=== PATIENT | male | born 1960 | race Asian ===

== ENCOUNTER 2025-04-18 09:04 | Inpatient (IN) | payer MEDICARE, MEDICAID ==
[~2025-04-18] VITALS: Ht 182.9 cm; Wt 72.0 kg
--- NOTE | 2025-04-18 09:37 | ED.PDOC ---
History of Present Illness HPI Comments 65 year old male presents to the ED with a chief complaint of dizziness onset 1 day. Patient states he has been experiencing dizziness, nausea for the past day. He noticed symptoms worsened this morning, came to ED. Patient also states he drinks ETOH daily. Denies fever, chills, chest pain, headache, shortness of breath, cough, cold, congestion, dysuria, hematuria. No other symptoms or modifying factors present at this time. Chief Complaint: Dizziness Time Seen by MD: 09:30 Reviewed Notes: Medications, Allergies Allergies: Coded Allergies: NO KNOWN ALLERGIES (Unverified , 04/18/25) Information Source: Patient, Relative (Sibling) Mode of Arrival: Ambulatory Severity: Moderate Timing: Days Duration: Since onset Prehospital treatment: None Past Medical History PAST MEDICAL HISTORY: Denies Surgical History: Denies all surgeries Family History Family History: Reviewed,noncontributory to illness, No family hx of Cancer, No family hx of DM, No family hx of Heart kendrick, No family hx of HTN, No family hx ofKidney kendrick, No family hx of Liver kendrick, No family hx of Lung kendrick, No family hx of Stroke Social History Smoker: Non-Smoker Alcohol: Heavy Drugs: Denies Drug Use Lives In: Home Constitutional: denies: chills, diaphoresis, fatigue, fever, malaise, sweats, weakness, others EENTM: denies: blurred vision, double vision, ear bleeding, ear discharge, ear drainage, ear pain, ear ringing, eye pain, eye redness, hearing loss, mouth pain, mouth swelling, nasal discharge, nose bleeding, nose congestion, nose pain, photophobia, tearing, throat pain, throat swelling, voice changes, others Respiratory: denies: cough, hemoptysis, orthopnea, SOB at rest, shortness of breath, SOB with excertion, stridor, wheezing, others Cardiovascular: denies: chest pain, dizzy spells, diaphoresis, Dyspnea on exertion, edema, irregular heart beat, left arm pain, lightheadedness, palpitations, PND, syncope, others Gastrointestinal: reports: nausea; denies: abdomen distended, abdominal pain, blood streaked bowels, constipated, diarrhea, dysphagia, difficulty swallowing, hematemesis, melena, poor appetite, poor fluid intake, rectal bleeding, rectal pain, vomiting, others Genitourinary: denies: burning, dysuria, flank pain, frequency, hematuria, incontinence, penile discharge, penile sore, pain, testicle pain, testicle swelling, urgency, others Neurological: reports: dizziness; denies: fainting, headache, left sided numbness, left sided weakness, numbness, paresthesia, pre-existing deficit, right sided numbness, right sided weakness, seizure, speech problems, tingling, tremors, weakness, others Musculoskeletal: denies: back pain, gout, joint pain, joint swelling, muscle pain, muscle stiffness, neck pain, others Integumetry: denies: bruises, change in color, change in hair/nails, dryness, laceration, lesions, lumps, rash, wounds, others Allergic/Immunocompromised: denies: Difficulty Healing, Frequent Infections, Hives, Itching, others Hematologic/Lymphatic: denies: anemia, blood clots, easy bleeding, easy bruising, swollen glands, others Endocrine: denies: excessive hunger, excessive sweating, excessive thirst, excessive urination, flushing, intolerance to cold, intolerance to heat, unexplained weight gain, unexplained weight loss, others Psychiatric: denies: anxiety, bipolar disorder, depression, hopeless, panic disorder, schizophrenia, sleepless, suicidal, others All Other Systems: Reviewed and Negative Physical Exam General Appearance: Moderate Distress, Normal HEENT: Normal ENT Inspection, Pharynx Normal, TMs Normal Neck: Full Range of Motion, Non-Tender, Normal, Normal Inspection Respiratory: Chest Non-Tender, Lungs Clear, No Accessory Muscle Use, No Respiratory Distress, Normal Breath Sounds Cardiovascular: No Edema, No JVD, No Murmur, No Gallop, Normal Peripheral Pulses, Regular Rate/Rhythm Breast Exam: Deferred Gastrointestinal: No Organomegaly, Non Tender, No Pulsatile Mass, Normal Bowel Sounds, Soft Genitalia: Deferred Pelvic: Deferred Rectal: Deferred Extremities: No calf tenderness, Normal capillary refill, Normal inspection, Normal range of motion, Non-tender, No pedal edema Musculoskeletal : Apperance: Normal Neurologic: Alert, bowling teacher II-XII nml as Tested, No Motor Deficits, Normal Affect, Normal Mood, No Sensory Deficits Cerebellar Function: Normal Reflexes: Normal Skin: Dry, Normal Color, Warm Peripheral Pulses: 3+ Radial (R), 3+ Radial (L) Lymphatic: No Adenopathy Was a procedure done? Was a procedure done?: No Differential Dx Considerations may include: TIA Electrolyte imbalance X-Ray, Labs, Meds, VS Vital Signs Date Time Temp Pulse Resp B/P (MAP) Pulse Ox O2 Delivery O2 Flow Rate FiO2 04/18/25 09:08 97.8 74 18 133/65 96 97.8 Lab Test 04/18/25 09:43 Range/Units White Blood Count 9.7 4.4-10.8 10^3/uL Red Blood Count 4.70 4.5-5.90 10^6/uL Hemoglobin 15.7 13.5-17.5 g/dL Hematocrit 46.3 41.0-53.0 % Mean Corpuscular Volume 98.5 80.0-100.0 fL Mean Corpuscular Hemoglobin 33.3 H 28.0-32.0 pg Mean Corpuscular Hemoglobin Concent 33.8 32.0-36.0 g/dL Red Cell Distribution Width 14.5 H 11.8-14.3 % Platelet Count 321 140-450 10^3/uL Mean Platelet Volume 7.2 6.9-10.8 fL Neutrophils (%) (Auto) 65.3 37.0-80.0 % Lymphocytes (%) (Auto) 27.0 10.0-50.0 % Monocytes (%) (Auto) 6.8 0.0-12.0 % Eosinophils (%) (Auto) 0.3 0.0-7.0 % Basophils (%) (Auto) 0.6 0.0-2.0 % Neutrophils # (Auto) 6.4 1.6-8.6 10 ^3/uL Lymphocytes # (Auto) 2.6 0.4-5.4 10 ^3/uL Monocytes # (Auto) 0.7 0-1.3 10 ^3/uL Eosinophils # (Auto) 0 0-0.8 10 ^3/uL Basophils # (Auto) 0.1 0-0.2 10 ^3/uL Nucleated Red Blood Cells 0.1 % Sodium Level 139 136-145 mmol/L Potassium Level 4.0 3.5-5.1 mmol/L Chloride Level 104 98-107 mmol/L Carbon Dioxide Level 26 20-31 mmol/L Anion Gap 9 5-15 Blood Urea Nitrogen 11 9-23 mg/dL Creatinine 1.03 0.700-1.30 mg/dL Glomerular Filtration Rate Calc 80 >90 mL/min BUN/Creatinine Ratio 10.7 10.0-20.0 Serum Glucose 144 H 74-106 mg/dL Calcium Level 9.4 8.7-10.4 mg/dL Troponin I High Sensitivity < 3 L </=54 ng/L Current Medications Medications (Trade) Dose Ordered Sig/Angle Route Start Time Stop Time Status Last Admin Sodium Chloride 1,000 ml @ 1,000 mls/hr Q1H ONCE IV 04/18/25 09:45 04/18/25 10:44 DC 04/18/25 10:00 [place] [id number] Ph: [phone] DIAGNOSTIC IMAGING Diagnostic Imaging Report : [id number] Signed PATIENT: BIRDIE AGUIRRE ACCT: [id number] UNIT: [id number] : 1960 LOC: ER ROOM / BED: / AGE / SEX: 65 / M ADM STATUS: REG ER SERVICE 1021 ORDERING PHYSICIAN: REINALDO MATHIS MD PROCEDURE(s): HWOCT - HEAD WITHOUT CONTRAST REASON: tia ORDER NUMBER(s): [id number], ACCESSION NUMBER(s): [id number] EXAM: CT HEAD WITHOUT CONTRAST INDICATION: tia TECHNIQUE: CT of the head without intravenous contrast. Radiation Dose Information: CT Dose: CTDI volume is 53.99 mGy. Dose-length product is 971.88 mGy*cm The dose indicators for CT are the volume Computed Tomography (CT) Dose Index (CTDIvol) and the Dose Length Product (DLP), and are measured in units of mGy and mGy-cm, respectively. These indicators are not patient dose, but values generated from the CT scanner acquisition factors. The report includes radiation exposure data for exposures received during this examination. COMPARISON: None FINDINGS: There is no evidence of acute intracranial hemorrhage, extra-axial collection, mass effect, midline shift, herniation or hydrocephalus. The ventricles, sulci and cisterns are age appropriate. The kidd-white differentiation is intact. Patchy periventricular and subcortical white matter hypoattenuation is nonspecific but may be related to small vessel ischemic disease. The visualized paranasal sinuses and mastoid air cells are clear. The surrounding soft tissues and osseous structures are unremarkable. IMPRESSION: No acute intracranial abnormality. ATED BY: PRAVEENA HAWKINS MD DICTATED DATE/TIME: 04/18/251103 SIGNED BY: PRAVEENA HAWKINS MD SIGNED DATE/TIME: 04/18/251103 CC: Patient alert. Came in because of dizziness. Vitals stable. Answering all questions. He needs help walking. CT scan of the head reviewed does not show any acute changes. He does smoke cigarettes. Counseled patient on effects of smoking for 15 minutes. Does drink daily. Counseled patient on effects of drinking for 15 minutes. Explained to the patient. Continue monitoring. Time of 1ST Reevaluation: 10:00 Reevaluation 1ST: Unchanged Patient Education/Counseling: Diagnosis, Treatment, Prognosis Family Education/Counseling: Diagnosis, Treatment, Prognosis SEPSIS Sepsis Screen Date sepsis recognized/suspect: Apr 18, 2025 Time Sepsis recognized/suspect: 09 Recent Procedure: No On Antibiotic Therapy: No Respiratory Rate >20: No Heart Rate >90: No Temp<36 C (96.8 F) or >38.3 C: No SBP <90 or MAP <65 mmHG: No New Acute Mental Status Change: No Is the patient on CPAP, BIPAP,: No Physician Orders Head Without Contrast (04/18/25 10:21) Vital Signs Date Time Temp Pulse Resp B/P (MAP) Pulse Ox O2 Delivery O2 Flow Rate FiO2 04/18/25 09:08 97.8 74 18 133/65 96 97.8 Laboratory Tests Test 04/18/25 09:43 White Blood Count 9.7 10^3/uL (4.4-10.8) Medications Medications Dose Ordered Sig/Angle Route Start Time Stop Time Status Last Admin Dose Admin Sodium Chloride 1,000 ml @ 1,000 mls/hr Q1H ONCE IV 04/18/25 09:45 04/18/25 10:44 DC 04/18/25 10:00 Departure 1 Departure Time of Disposition: 13:13 Impression: Primary Impression: TIA (transient ischemic attack) Additional Impression: Autonomic disorder Disposition: ADMITTED INPATIENT Admit to: Med Surg Condition: Guarded Critical Care Note Critical Care Time?: Yes (90 min-critical care time only) Stability Stability form required: No Heart Score Heart Score: Heart Score Response (Comments) Value History Slightly Suspicious 0 EKG Normal 0 Age >65 2 Risk Factors >3 or Hx ASHD 2 Troponin Normal limit 0 Total 4 I personally scribed for REINALDO MATHIS MD ([email or web address]) on 04/18/25 at 09:37. Electronically submitted by Jessica Mckeon ([email or web address]). I personally scribed for REINALDO MATHIS MD ([email or web address]) on 04/18/25 at 11:19. Electronically submitted by Jessica Mckeon ([email or web address]). REINALDO MATHIS MD Apr 18, 2025 09:37
[2025-04-18 09:56] LABS: Hematocrit 46.3 % (41.0-53.0); Hemoglobin 15.7 g/dL (13.5-17.5); Mean Corpuscular Hemoglobin 33.3 pg (28.0-32.0); Mean Corpuscular Volume 98.5 fL (80.0-100.0); Nucleated Red Blood Cells % 0.1 %
[2025-04-18 09:58] LABS: Chloride 104 mmol/L (98-107); Potassium 4.0 mmol/L (3.5-5.1); Sodium 139 mmol/L (136-145)
[2025-04-18 09:59] LABS: Anion Gap 9 (5-15); Carbon Dioxide 26 mmol/L (20-31)
[2025-04-18 10:00] LABS: Calcium 9.4 mg/dL (8.7-10.4)
[2025-04-18] MEDS: SODIUM CHLORIDE 0.9% 1,000 ML IV ONE ×2 (10:00→18:00)
[2025-04-18 10:05] LABS: BUN/Creatinine Ratio 10.7 (10.0-20.0); Blood Urea Nitrogen 11 mg/dL (9-23)
[2025-04-18 10:09] LABS: Glucose 144 mg/dL (74-106)
--- NOTE | 2025-04-18 11:07 | DVH ---
EXAM: CT HEAD WITHOUT CONTRAST INDICATION: tia TECHNIQUE: CT of the head without intravenous contrast. Radiation Dose Information: CT Dose: CTDI volume is 53.99 mGy. Dose-length product is 971.88 mGy*cm The dose indicators for CT are the volume Computed Tomography (CT) Dose Index (CTDIvol) and the Dose Length Product (DLP), and are measured in units of mGy and mGy-cm, respectively. These indicators are not patient dose, but values generated from the CT scanner acquisition factors. The report includes radiation exposure data for exposures received during this examination. COMPARISON: None FINDINGS: There is no evidence of acute intracranial hemorrhage, extra-axial collection, mass effect, midline s hift, herniation or hydrocephalus. The ventricles, sulci and cisterns are age appropriate. The kidd-white differentiation is intact. Patchy periventricular and subcortical white matter hypoattenuation is nonspecific but may be related to small vessel ischemic disease. The visualized paranasal sinuses and mastoid air cells are clear. The surrounding soft tissues and osseous structures are unremarkable. IMPRESSION: No acute intracranial abnormality.
[2025-04-18] MEDS ORDERED: ACETAMINOPHEN 325 MG TAB PO PRN (15:30)
[2025-04-18] MEDS ORDERED: ONDANSETRON HCL 4 MG/2 ML VIAL IV PRN (15:30)
[2025-04-18] MEDS ORDERED: MORPHINE SULFATE INJ 2 MG/ml SYRG IV PRN (15:30)
[2025-04-18] MEDS ORDERED: HYDROcodone-ACET 5/325MG TAB PO PRN (15:30)
[2025-04-18] MEDS ORDERED: NITROGLYCERIN 0.4 MG SL TAB SL PRN (15:30)
[2025-04-18] MEDS ORDERED: DOCUSATE SOD 100 MG CAP PO PRN (15:30)
[2025-04-18] MEDS ORDERED: MECLIZINE HCL 25 MG TAB PO PRN (15:45)
--- NOTE | 2025-04-18 16:07 | DVH ---
Carotid Duplex Date: 04/18/2025 03:39 PM Clinical History: Possible TIA Comparison: None Technique: Duplex Doppler evaluation of the extracranial carotid and vertebral arteries including col or Doppler and spectral/pulsed waveform analysis was performed. Findings: RIGHT SIDE: The peak systolic velocities are 130 cm/s in the distal CCA and 73 cm/s in the proximal ICA.The ICA/C CA ratio is less than 1. The external carotid artery is patent with peak systolic velocity of 77 cm/s proximally. There is appropriate antegrade flow in the right vertebral artery. LEFT SIDE: The peak systolic velocities are 132 cm/s in the distal CCA and 77 cm/s in the proximal ICA.. The ICA /CCA ratio is less than 1. The external carotid artery is patent with peak systolic velocity of 128 cm/s proximally. There is appropriate antegrade flow in the left vertebral artery. IMPRESSION: 1. No hemodynamically significant stenosis noted in the right carotid system. Elevated velocity of th e right common carotid proximally 2. No hemodynamically significant stenosis noted in the left carotid system. Elevated velocity left e xternal carotid 3. Reference: Radiology 2003; 229:340-346
--- NOTE | 2025-04-18 16:21 | DVHHP2 ---
History of Present Illness Reason for Visit: Dizzy History of Present Illness Lio Quiñonez is a 65-year-old male with no significant past medical history, who came to the hospital for dizziness. Patient states it started yesterday and has continued this morning. States it is worse when he moves his head or moves quickly with associated nausea. Patient states he smokes about 1 pack of cigarettes in 3 days and drinks 1 bottle of whiskey in 3 days. Smoke: <1 pack per day ALCOHOL: heavy (whiskey) Drugs: Marijuana Lives: Alone Domestic Violence: Neg Review of Systems Constitutional: No: Fever, Chills, Sweats, Weakness, Malaise, Other Eyes: No: Pain, Vision change, Conjunctivae inflammation, Eyelid inflammation, Other, Redness ENT: No: Ear pain, Ear discharge, Nose pain, Nose discharge, Nose congestion, Mouth pain, Mouth swelling, Throat pain, Throat swelling, Other Respiratory: No: Cough, Dry, Shortness of breath, SOB with excertion, Wheezing, Hemoptysis, Pleuritic Pain, Sputum, Wheezing, Other Cardiovascular: No: Chest Pain, Palpitations, Orthopnea, Paroxysmal Noc. Dyspnea, Edema, Lt Headedness, Other Gastrointestinal: Nausea; No: Vomiting, Abdominal Pain, Diarrhea, Constipation, Melena, Hematochezia, Other Genitourinary: No Dysuria, No Frequency, No Incontinence, No Hematuria, No Retention, No Other Musculoskeletal: No: other, neck pain, shoulder pain, arm pain, back pain, hand pain, leg pain, foot pain Skin: No: Rash, Lesions, Jaundice, Bruising, Other Neurological: Other (dizzy); No: Weakness, Numbness, Incoordination, Change in speech, Confusion, Seizures Allergies: Coded Allergies: NO KNOWN ALLERGIES (Unverified , 04/18/25) Medications Current Medications Medications Dose Ordered Sig/Angle Route Start Time Stop Time Status Last Admin Dose Admin Sodium Chloride 10 ml Q8HR IV 04/18/25 22:00 UNV Acetaminophen/ Hydrocodone Bitart 1 tab Q4HP PRN PO 04/18/25 15:30 UNV Ondansetron HCl 4 mg Q4HP PRN IV 04/18/25 15:30 UNV Docusate Sodium 100 mg BIDPRN PRN PO 04/18/25 15:30 UNV Acetaminophen 650 mg Q6HP PRN PO 04/18/25 15:30 UNV Nitroglycerin 0.4 mg Q5MINP PRN SL 04/18/25 15:30 UNV Morphine Sulfate 2 mg Q30M PRN IV 04/18/25 15:30 UNV Exam Vital Signs Vital Signs Date Time Temp Pulse Resp B/P (MAP) Pulse Ox O2 Delivery O2 Flow Rate FiO2 04/18/25 09:08 97.8 74 18 133/65 96 97.8 General Appearance: Alert, Oriented X3, Cooperative, No acute distress HEENT: Atraumatic, PERRLA Respiratory: Clear to auscultation, Normal air movement Cardiovascular: Regular rate, Normal S1, Normal S2, No murmurs Abdominal: Normal bowel sounds, Soft, No tenderness, No hepatospenomegaly Extremities: No clubbing, No cyanosis, No edema, Normal pulses, No tende rness/swelling Skin: No rashes, No breakdown, No significant lesion Neuro: Normal gait, Normal speech, Strength at 5/5 X4 ext Psych/Mental Status: Mental status NL, Mood NL Labs/Xrays Labs Test 04/18/25 09:43 Range/Units White Blood Count 9.7 4.4-10.8 10^3/uL Red Blood Count 4.70 4.5-5.90 10^6/uL Hemoglobin 15.7 13.5-17.5 g/dL Hematocrit 46.3 41.0-53.0 % Mean Corpuscular Volume 98.5 80.0-100.0 fL Mean Corpuscular Hemoglobin 33.3 H 28.0-32.0 pg Mean Corpuscular Hemoglobin Concent 33.8 32.0-36.0 g/dL Red Cell Distribution Width 14.5 H 11.8-14.3 % Platelet Count 321 140-450 10^3/uL Mean Platelet Volume 7.2 6.9-10.8 fL Neutrophils (%) (Auto) 65.3 37.0-80.0 % Lymphocytes (%) (Auto) 27.0 10.0-50.0 % Monocytes (%) (Auto) 6.8 0.0-12.0 % Eosinophils (%) (Auto) 0.3 0.0-7.0 % Basophils (%) (Auto) 0.6 0.0-2.0 % Neutrophils # (Auto) 6.4 1.6-8.6 10 ^3/uL Lymphocytes # (Auto) 2.6 0.4-5.4 10 ^3/uL Monocytes # (Auto) 0.7 0-1.3 10 ^3/uL Eosinophils # (Auto) 0 0-0.8 10 ^3/uL Basophils # (Auto) 0.1 0-0.2 10 ^3/uL Nucleated Red Blood Cells 0.1 % Sodium Level 139 136-145 mmol/L Potassium Level 4.0 3.5-5.1 mmol/L Chloride Level 104 98-107 mmol/L Carbon Dioxide Level 26 20-31 mmol/L Anion Gap 9 5-15 Blood Urea Nitrogen 11 9-23 mg/dL Creatinine 1.03 0.700-1.30 mg/dL Glomerular Filtration Rate Calc 80 >90 mL/min BUN/Creatinine Ratio 10.7 10.0-20.0 Serum Glucose 144 H 74-106 mg/dL Calcium Level 9.4 8.7-10.4 mg/dL Troponin I High Sensitivity < 3 L </=54 ng/L EXAM: CT HEAD WITHOUT CONTRAST FINDINGS: There is no evidence of acute intracranial hemorrhage, extra-axial collection, mass effect, midline shift, herniation or hydrocephalus. The ventricles, sulci and cisterns are age appropriate. The kidd-white differentiation is intact. Patchy periventricular and subcortical white matter hypoattenuation is nonspecific but may be related to small vessel ischemic disease. The visualized paranasal sinuses and mastoid air cells are clear. The surrounding soft tissues and osseous structures are unremarkable. IMPRESSION: No acute intracranial abnormality. SEPSIS Sepsis Screen Date sepsis recognized/suspect: Apr 18, 2025 Time Sepsis recognized/suspect: 910 Recent Procedure: No On Antibiotic Therapy: No Respiratory Rate >20: No Heart Rate >90: No Temp<36 C (96.8 F) or >38.3 C: No SBP <90 or MAP <65 mmHG: No New Acute Mental Status Change: No Is the patient on CPAP, BIPAP,: No Physician Orders Head Without Contrast (04/18/25 10:21) Admit (04/18/25 15:20) Code Status (04/18/25 15:20) Sodium Chloride Lock (Saline Lock Ns) (04/18/25 22:00) Hydrocodone-Acet 5/325mg Tab ([place] 5/32 (04/18/25 15:30) Ondansetron Hcl (Zofran) (04/18/25 15:30) Docusate Sodium Capsule (Colace Capsule) (04/18/25 15:30) Complete Blood Count (04/19/25 04:00) Comprehensive Metabolic Panel (04/19/25 04:00) Carotid Duplx W Color Dop (04/18/25 15:20) Condition: Serious (04/18/25 15:20) Acetaminophen Tablet (Tylenol Tablet) (04/18/25 15:30) Nitroglycerin Sublingual (Ntrostat Subli (04/18/25 15:30) Morphine Sulfate Injection (04/18/25 15:30) Stat Ekg For Chest Pain (04/18/25 15:20) Notify Of Changes From Base (04/18/25 15:20) Search Specialist For 24 Hours (04/18/25 15:20) Emergency Dysrhythmia Protocol (04/18/25 15:20) Rhythm Strips Once Every Shift (04/18/25 15:20) Oxygen By Nasal Cannula (04/18/25 15:20) Vital Signs Date Time Temp Pulse Resp B/P (MAP) Pulse Ox O2 Delivery O2 Flow Rate FiO2 04/18/25 09:08 97.8 74 18 133/65 96 97.8 Laboratory Tests Test 04/18/25 09:43 White Blood Count 9.7 10^3/uL (4.4-10.8) Medications Medications Dose Ordered Sig/Angle Route Start Time Stop Time Status Last Admin Dose Admin Sodium Chloride 1,000 ml @ 1,000 mls/hr Q1H ONCE IV 04/18/25 09:45 04/18/25 10:44 DC 04/18/25 10:00 1,000 MLS/HR Assessment/Plan Assessment/Plan Assessment: Autonomic disorder, Possible vertigo, ETOH dependance, Plan: Admit to Tele, Neurology consult, Meclizine, PO supplements for possible ETOH withdrawal, PRN Ativan for possible ETOH withdrawal, IV hydration, Plan discussed with: Patient, Other (Sister) My Orders Orders - AUTUMN GONZALES Procedure Category Date Status Time Admit ADMIT 04/18/25 Transmitted 15:20 Code Status CODE 04/18/25 Transmitted 15:20 Sodium Chloride Lock PHA 04/18/25 Logged (Saline Lock Ns) 22:00 Hydrocodone-Acet PHA 04/18/25 Logged 5/325mg Tab ([place] 15:30 Ondansetron Hcl PHA 04/18/25 Logged (Zofran) 15:30 Docusate Sodium PHA 04/18/25 Logged Capsule (Colace 15:30 Complete Blood Count LAB 04/19/25 Verified 04:00 Comprehensive LAB 04/19/25 Verified Metabolic Panel 04:00 Carotid Duplx W Color US 04/18/25 Logged DOP 15:20 Condition: Serious [facility] 04/18/25 In Process 15:20 Acetaminophen Tablet PHA 04/18/25 Logged (Tylenol Tablet) 15:30 Nitroglycerin PHA 04/18/25 Logged Sublingual (Ntrostat 15:30 Morphine Sulfate PHA 04/18/25 Logged Injection 15:30 Stat Ekg For Chest [facility] 04/18/25 In Process Pain 15:20 Notify Md Of Changes [facility] 04/18/25 In Process From Base 15:20 Search Specialist For [facility] 04/18/25 In Process 24 Hours 15:20 Emergency Dysrhythmia [facility] 04/18/25 In Process Protocol 15:20 Rhythm Strips Once [facility] 04/18/25 In Process Every Shift 15:20 Oxygen By Nasal RT 04/18/25 Transmitted Cannula 15:20 Date of Service: Apr 18, 2025 Billing Provider: AUTUMN GONZALES Common Visit Codes: [id number] INP/OBS CARE (MOD) AUTUMN GONZALES Apr 18, 2025 16:21
[2025-04-18] MEDS ORDERED: LORazepam 2MG/ML-1ML VIAL IV PRN (16:30)
[2025-04-18] MEDS: FOLIC ACID 1 MG TAB PO ONE (17:07)
[2025-04-18] MEDS: THIAMINE HCL 100 MG TAB PO ONE (17:07)
[2025-04-18] MEDS: MECLIZINE HCL 25 MG TAB PO ONE (17:07)
[2025-04-18] MEDS: MULTIPLE VITAMINS W/ MINERALS TAB PO ONE (17:07)
[2025-04-18 18:25] VITALS: BP 126/75; PULSE 64; RESP 14; TEMP 98; O2SAT 97
--- NOTE | 2025-04-18 20:38 | DVHINCON2 ---
Date of service: Apr 18, 2025 Referring Physician Carmen Reason for Consultation Autonomic disorder, possible vertigo History of Present Illness Mr. Quiñonez is a 65 years ambidextrous gentleman with a history of gout, he came to the [facility] on 04/18/2025 with a chief complaint of dizziness. At this time, he is alert and fully oriented, he provided the following history On 04/17/25, I have suddenly up, when he walks down stairs, he had a brief dizziness/imbalance feeling but he did not have vertigo, chest pain, headache, vision changes, he kept himself still and the symptoms resolved with 1 minutes high, later when he moved his head, he had a discomfort, his problems persist and he decided to come to the hospital today. At this time, he moves head, he still have light discomfort. He has never had similar problem before He drinks alcohol heavily, maybe every other day, with the last drink on WBC/HB/PLT/MCV, 04/18/2025: 9.7/47/321/98.5 BMP 04/18/2025: Unremarkable Troponin one high sensitivity, 04/18/2025: <3 Carotid Doppler, 04/18/2025: 1. No hemodynamically significant stenosis noted in the right carotid system. Elevated velocity of the right common carotid proximally 2. No hemodynamically significant stenosis noted in the left carotid system. Elevated velocity left external carotid CT head, 04/18/2025: No acute intracranial abnormality Past Medical History Gout Past Surgical History Right knee surgery Family History Heart attack, stroke Social History He smokes tobacco, he drinks heavy alcohol almost every other day, he smokes marijuana, but no history of street drug abuse Allergies: Coded Allergies: NO KNOWN ALLERGIES (Unverified , 04/18/25) Current Medications Current Medications Medications (Trade) Dose Ordered Sig/Angle Route PRN Reason Start Time Stop Time Status Last Admin Sodium Chloride (Saline Lock Ns) 10 ml Q8HR IV 04/18/25 22:00 Acetaminophen/ Hydrocodone Bitart ([place] 5/325MG Tab) 1 tab Q4HP PRN PO MODERATE PAIN (4-6 PAIN SCALE) 04/18/25 15:30 Ondansetron HCl (Zofran) 4 mg Q4HP PRN IV NAUSEA / VOMITING 04/18/25 15:30 Docusate Sodium (Colace Capsule) 100 mg BIDPRN PRN PO FOR CONSTIPATION 04/18/25 15:30 Acetaminophen (Tylenol Tablet) 650 mg Q6HP PRN PO PAIN SCALE 1-3 OR TEMP>100.4 04/18/25 15:30 Nitroglycerin (Ntrostat Sublingual) 0.4 mg Q5MINP PRN SL FOR CHEST PAIN 04/18/25 15:30 Morphine Sulfate 2 mg Q30M PRN IV FOR CHEST PAIN 04/18/25 15:30 Meclizine HCl (Antivert Tablet) 25 mg Q8HPRN PRN PO DIZZINESS 04/18/25 15:45 Thiamine HCl 100 mg DAILY PO 04/19/25 10:00 Multivitamins/ Minerals (Mvi W/ Minerals Tablet) 1 tab DAILY PO 04/19/25 10:00 Folic Acid 1 mg DAILY PO 04/19/25 10:00 Lorazepam (Ativan Inj) 1 mg Q2HP PRN IV ALCOHOL WITHDRAWAL SYMPTOMS 04/18/25 16:30 Review of Systems As above, the other systems are negative Vital Signs Vital Signs Date Time Temp Pulse Resp B/P (MAP) Pulse Ox O2 Delivery O2 Flow Rate FiO2 04/18/25 18:25 64 14 97 Room Air* 0 21 04/18/25 18: 98.0 126/75 (92) 98.0 Physical Exam GENERAL EXAM: General: the patient is well developed and nourished. No acute distress. HEENT: Normocephalic, neck is supple, no carotid bruits. No mass. RESPIRATORY: Normal respiratory effort with symmetrical lung expansion. Lungs clear to auscultation. CARDIOVASCULAR: Regular rate and rhythm with no murmurs. S1, S2. ABDOMEN: Soft, nontender, normal bowel sound NEUROLOGICAL: MENTAL STATUS: Awake and alert. Oriented to person, place, time and general circumstances. Able to give personal history. SPEECH, LANGUAGE, HIGHER CORTICAL FUNCTION: no aphasia or dysathria. CRANIAL NERVES: #2: Intact visual diaz to confrontation. The optic discs were sharp #3,4,6: Pupils are equal, round and reactive. EOMs full and conjugate. No nystagmus. #5: Facial sensation intact in all three divisions bilaterally. Mandibular strength intact. #7: Facial muscles symmetrical and strength intact. #8: Hearing grossly normal to voice. #9,10: Uvula and soft palate rise in the midline. Swallow and voice are normal. #11: Trapezius and sternomastoid strength intact bilaterally. #12: Tongue midline. No fasciculations or atrophy. SENSATION: Sensation to touch and pinprick is normal. MOTOR: Normal tone in the upper and lower extremity. Normal muscle bulk. No fasciculations. No abnormal movements or posturing. Muscle strength of the major groups in the upper extremities is 5/5. Muscle strength of the major groups in the lower extremities is 5/5. REFLEXES: Deep tendon reflexes are symmetrical. No pathological reflexes. CEREBELLAR/COORDINATION: Finger to nose and heel to mcleod are normal bilaterally. GAIT/STATION: deferred. Labs/Diagnostic Data Labs Test 04/18/25 09:43 Range/Units White Blood Count 9.7 4.4-10.8 10^3/uL Red Blood Count 4.70 4.5-5.90 10^6/uL Hemoglobin 15.7 13.5-17.5 g/dL Hematocrit 46.3 41.0-53.0 % Mean Corpuscular Volume 98.5 80.0-100.0 fL Mean Corpuscular Hemoglobin 33.3 H 28.0-32.0 pg Mean Corpuscular Hemoglobin Concent 33.8 32.0-36.0 g/dL Red Cell Distribution Width 14.5 H 11.8-14.3 % Platelet Count 321 140-450 10^3/uL Mean Platelet Volume 7.2 6.9-10.8 fL Neutrophils (%) (Auto) 65.3 37.0-80.0 % Lymphocytes (%) (Auto) 27.0 10.0-50.0 % Monocytes (%) (Auto) 6.8 0.0-12.0 % Eosinophils (%) (Auto) 0.3 0.0-7.0 % Basophils (%) (Auto) 0.6 0.0-2.0 % Neutrophils # (Auto) 6.4 1.6-8.6 10 ^3/uL Lymphocytes # (Auto) 2.6 0.4-5.4 10 ^3/uL Monocytes # (Auto) 0.7 0-1.3 10 ^3/uL Eosinophils # (Auto) 0 0-0.8 10 ^3/uL Basophils # (Auto) 0.1 0-0.2 10 ^3/uL Nucleated Red Blood Cells 0.1 % Sodium Level 139 136-145 mmol/L Potassium Level 4.0 3.5-5.1 mmol/L Chloride Level 104 98-107 mmol/L Carbon Dioxide Level 26 20-31 mmol/L Anion Gap 9 5-15 Blood Urea Nitrogen 11 9-23 mg/dL Creatinine 1.03 0.700-1.30 mg/dL Glomerular Filtration Rate Calc 80 >90 mL/min BUN/Creatinine Ratio 10.7 10.0-20.0 Serum Glucose 144 H 74-106 mg/dL Calcium Level 9.4 8.7-10.4 mg/dL Troponin I High Sensitivity < 3 L </=54 ng/L Assessment Dizziness/unsteadiness ? Orthostatic hypotension ? Alcohol toxicity Alcoholism Plan/Recommendation Monitoring Supportive treatment Telemetry Orthostatic vitals MRI head Folic acid supplementation Thiamine supplementation Quit alcohol completely Syncopal precautions discussed More recommendation per clinical course Prognosis: Poor This medical document was created using an electronic medical record system with [employer] dictation system. Although this document has been carefully reviewed, there may still be some phonetic and typographical errors. These areas are purely typographical due to imperfections of the software programs, and do not reflect any compromise in the patient's medical care. Plan discussed with: Patient, Other TAZ ESTRADA MD Apr 18, 2025 20:38
[2025-04-18 20:43] VITALS: BP 160/64; PULSE 61; RESP 17; TEMP 97.7; O2SAT 98
[2025-04-18] MEDS: SODIUM CHLOR 0.9% PF (SALINE LOCK) 10ML VIAL/SYR IV SCH (22:00)
[2025-04-18 22:15] VITALS: BP 150/105; PULSE 64; RESP 18; TEMP 98.6; O2SAT 96
[2025-04-19 01:00] VITALS: BP 128/69; PULSE 75; RESP 19; TEMP 97.3; O2SAT 95
[2025-04-19 05:00] VITALS: BP 132/81; PULSE 61; RESP 18; TEMP 97; O2SAT 95
[2025-04-19 05:54] LABS: Hematocrit 40.7 % (41.0-53.0); Hemoglobin 14.0 g/dL (13.5-17.5); Mean Corpuscular Hemoglobin 34.0 pg (28.0-32.0); Mean Corpuscular Volume 98.5 fL (80.0-100.0); Nucleated Red Blood Cells % 0.0 %
[2025-04-19 06:12] LABS: Alanine Aminotransferase 34 U/L (7-40); Alkaline Phosphatase 47 U/L (46-116); Anion Gap 7 (5-15); BUN/Creatinine Ratio 12.4 (10.0-20.0); Blood Urea Nitrogen 12 mg/dL (9-23); Calcium 8.6 mg/dL (8.7-10.4); Carbon Dioxide 24 mmol/L (20-31); Chloride 110 mmol/L (98-107); Glucose 102 mg/dL (74-106); Potassium 4.2 mmol/L (3.5-5.1); Sodium 141 mmol/L (136-145); Total Protein 6.5 g/dL (5.7-8.2)
[2025-04-19 06:13] LABS: Albumin 4.1 g/dL (3.2-4.8)
[2025-04-19 06:14] LABS: Bilirubin, Total 1.7 mg/dL (0.2-1.0)
[2025-04-19 08:00] VITALS: PULSE 55
[2025-04-19 09:00] VITALS: BP 153/85; PULSE 60; RESP 16; TEMP 97.9; O2SAT 97
--- NOTE | 2025-04-19 09:00 | DVHPN2 ---
Progress Note - Dictate Date Seen: Apr 19, 2025 Medical Necessity Reason Pt with a Central, PICC or Fol: No Subjective Mr. Quiñonez is a 65 years ambidextrous gentleman with a history of gout, he came to the [facility] on 04/18/2025 with a chief complaint of dizziness. At this time, he is alert and fully oriented, he provided the following history On 04/17/25, after standing up, when he was walking down stairs, he had a brief dizziness/imbalance feeling but he did not have vertigo, chest pain, headache, vision changes, he kept himself still and the symptoms resolved within 1 minute, later when he moved his head, he had a discomfort, his problems persisted and he decided to come to the hospital today. At this time, when he moves the head, he still has light discomfort. He has never had similar problem previously He used to drink alcohol heavily, maybe every other day, with the last drink on 04/16/2025 I have seen and examined the patient, talked to his nurse, and other medical staff, he is doing fine, alert and fully oriented, no new complaints WBC/HB/PLT/MCV, 04/18/2025: 9.7/47/321/98.5 BMP 04/18/2025: Unremarkable Troponin one high sensitivity, 04/18/2025: <3 Carotid Doppler, 04/18/2025: 1. No hemodynamically significant stenosis noted in the right carotid system. Elevated velocity of the right common carotid proximally 2. No hemodynamically significant stenosis noted in the left carotid system. Elevated velocity left external carotid CT head, 04/18/2025: No acute intracranial abnormality vital signs Vital Sign Date Time Temp Pulse Resp B/P (MAP) Pulse Ox O2 Delivery O2 Flow Rate FiO2 04/19/25 08:20 Room Air* 0 21 04/19/25 05:00 97.0 61 18 132/81 (98) 95 97.0 Total Intake and Output 04/18/25 04/18/25 04/19/25 15:00 23:00 07:00 Intake Total 400 ml Balance 400 ml medications Current Medications Medications Dose Ordered Sig/Angle Route Start Time Stop Time Status Last Admin Dose Admin Sodium Chloride 10 ml Q8HR IV 04/18/25 22:00 04/19/25 05:26 10 ML Acetaminophen/ Hydrocodone Bitart 1 tab Q4HP PRN PO 04/18/25 15:30 Ondansetron HCl 4 mg Q4HP PRN IV 04/18/25 15:30 Docusate Sodium 100 mg BIDPRN PRN PO 04/18/25 15:30 Acetaminophen 650 mg Q6HP PRN PO 04/18/25 15:30 Nitroglycerin 0.4 mg Q5MINP PRN SL 04/18/25 15:30 Morphine Sulfate 2 mg Q30M PRN IV 04/18/25 15:30 Meclizine HCl 25 mg Q8HPRN PRN PO 04/18/25 15:45 Thiamine HCl 100 mg DAILY PO 04/19/25 10:00 Multivitamins/ Minerals 1 tab DAILY PO 04/19/25 10:00 Folic Acid 1 mg DAILY PO 04/19/25 10:00 Lorazepam 1 mg Q2HP PRN IV 04/18/25 16:30 objective General: the patient is well developed and nourished. No acute distress. MENTAL STATUS: Subjective SPEECH, LANGUAGE, HIGHER CORTICAL FUNCTION: no aphasia or dysathria. CRANIAL NERVES: Pupils are equal, round and reactive. EOMs full and conjugate. No nystagmus. Facial sensation intact in all three divisions bilaterally. Mandibular strength intact. Facial muscles symmetrical and strength intact. Tongue midline. No fasciculations or atrophy. SENSATION: Sensation to touch and pinprick is normal. MOTOR: Normal tone in the upper and lower extremity. Normal muscle bulk. No fasciculations. No abnormal movements or posturing. Muscle strength of the major groups in the extremities is 5/5. REFLEXES: Deep tendon reflexes are symmetrical. No pathological reflexes. CEREBELLAR/COORDINATION: Finger to nose and heel to mcleod are normal bilaterally. GAIT/STATION: deferred laboratory and microbiology Laboratory Tests 04/19/25 04:28 Test 04/19/25 04:28 Range/Units Serum Glucose 102 74-106 mg/dL Problem List Dizziness/unsteadiness ? Orthostatic hypotension ? Alcohol toxicity Alcoholism Assessment/Plan Monitoring Supportive treatment Telemetry Orthostatic vitals MRI head Folic acid supplementation Thiamine supplementation Quit alcohol completely Syncopal precautions discussed More recommendation per clinical course This medical document was created using an electronic medical record system with [employer] dictation system. Although this document has been carefully reviewed, there may still be some phonetic and typographical errors. These areas are purely typographical due to imperfections of the software programs, and do not reflect any compromise in the patient's medical care. Prognosis poor Plan discussed with: Patient, Other TAZ ESTRADA MD Apr 19, 2025 09:00
[2025-04-19] MEDS: FOLIC ACID 1 MG TAB PO SCH (09:35)
[2025-04-19] MEDS: MULTIPLE VITAMINS W/ MINERALS TAB PO SCH (09:35)
[2025-04-19] MEDS: THIAMINE HCL 100 MG TAB PO SCH (09:35)
--- NOTE | 2025-04-19 10:58 | DVH ---
EXAMINATION: MRI BRAIN HEAD WO CONTRAST INDICATION: Dizziness. COMPARISON: CT HEAD WITHOUT CONTRAST on DOS: 04/18/25 TECHNIQUE: Multiplanar, multisequence magnetic resonance imaging of the brain was performed without the use of i ntravenous contrast. FINDINGS: No evidence of acute infarct. No intracranial hemorrhage. No mass effect. There is periventricular/deep white matter T2/FLAIR hyperintensity is nonspecific, but most commonly associated with chronic microvascular disease. The ventricles and sulci are normal in size for age. Clear basal cisterns. Flow voids in the major intracranial vessels are maintained. No abnormality of the orbits. The mastoid air cells are clear. Mucosal thickening in the right maxillary sinus. No abnormality of the visualized osseous structures and extracranial soft tissues. IMPRESSION: 1. No acute infarct, intracranial hemorrhage, mass effect, or hydrocephalus.
[2025-04-19] MEDS ORDERED: THIA100T10 PO (13:08)
[2025-04-19] MEDS ORDERED: FOLI-119 PO (13:08)
[2025-04-19] MEDS ORDERED: MULT-351 PO (13:08)
[2025-04-19] MEDS ORDERED: MECL-90 PO (13:08)
--- NOTE | 2025-04-19 13:11 | DVHDS2 ---
Discharge Summary Date of Admission Apr 18, 2025 at 15:20 Date of Discharge: Apr 19, 2025 Labs/Diagnostic Data: Laboratory Results Test 04/19/25 04:28 04/18/25 09:43 White Blood Count 8.5 10^3/uL (4.4-10.8) Red Blood Count 4.13 10^6/uL (4.5-5.90) Hemoglobin 14.0 g/dL (13.5-17.5) Hematocrit 40.7 % (41.0-53.0) Mean Corpuscular Volume 98.5 fL (80.0-100.0) Mean Corpuscular Hemoglobin 34.0 pg (28.0-32.0) Mean Corpuscular Hemoglobin Concent 34.5 g/dL (32.0-36.0) Red Cell Distribution Width 14.0 % (11.8-14.3) Platelet Count 287 10^3/uL (140-450) Mean Platelet Volume 7.3 fL (6.9-10.8) Neutrophils (%) (Auto) 62.0 % (37.0-80.0) Lymphocytes (%) (Auto) 29.3 % (10.0-50.0) Monocytes (%) (Auto) 7.0 % (0.0-12.0) Eosinophils (%) (Auto) 1.2 % (0.0-7.0) Basophils (%) (Auto) 0.5 % (0.0-2.0) Neutrophils # (Auto) 5.3 10 ^3/uL (1.6-8.6) Lymphocytes # (Auto) 2.5 10 ^3/uL (0.4-5.4) Monocytes # (Auto) 0.6 10 ^3/uL (0-1.3) Eosinophils # (Auto) 0.1 10 ^3/uL (0-0.8) Basophils # (Auto) 0 10 ^3/uL (0-0.2) Nucleated Red Blood Cells 0.0 % Sodium Level 141 mmol/L (136-145) Potassium Level 4.2 mmol/L (3.5-5.1) Chloride Level 110 mmol/L (98-107) Carbon Dioxide Level 24 mmol/L (20-31) Anion Gap 7 (5-15) Blood Urea Nitrogen 12 mg/dL (9-23) Creatinine 0.97 mg/dL (0.700-1.30) Glomerular Filtration Rate Calc 86 mL/min (>90) BUN/Creatinine Ratio 12.4 (10.0-20.0) Serum Glucose 102 mg/dL (74-106) Calcium Level 8.6 mg/dL (8.7-10.4) Total Bilirubin 1.7 mg/dL (0.2-1.0) Aspartate Amino Transferase (AST) 23 U/L (13-40) Alanine Aminotransferase (ALT) 34 U/L (7-40) Alkaline Phosphatase 47 U/L (46-116) Total Protein 6.5 g/dL (5.7-8.2) Albumin 4.1 g/dL (3.2-4.8) Troponin I High Sensitivity < 3 ng/L (</=54) Other Laboratory Tests 04/19/25 04:28 Brief Hx & Hospital Course: 65m with no sig pmh admitted for dizziness. patient reported dizziness when ambulating and more pronounced on head movement. seen by neuro, MRI clear. not in withdrawal however consuming heavy alcohol use daily. given thiamine and folate. stable to dc home Condition at Discharge: Good Final Diagnosis/Problems List BPPV ruled out stroke alcohol use Discharge Disposition: Home Discharge Instruct/Medications Diet: Consistent carbohydrate, Cardiac 2g Na,low cholest Activity: No Restrictions, As Tolerated Scheduled Folic Acid (Folic Acid), 1 MG PO DAILY Multiple Vitamins W/ Minerals (Multiple Vitamins/Womens), 1 TAB PO DAILY Thiamine Hcl (Vitamin B-1), 100 MG PO DAILY Scheduled PRN Meclizine Hcl (Meclizine Hcl), 25 MG PO Q8HPRN PRN Discharge Statement: "Patient was advised to return to the ER or call 911 if any headaches, dizziness, shortness of breath, chest pain, abdominal pain, bleeding, fevers, or worsening of medical condition. Patient was counseled about treatment plan, medications, possible side effects, patientverbalized understanding. All questions were answered to the best of my ability. This discharge took greater then 30 minutes in planning, reviewing documentation, counseling the patient, and discussing with other team members." ASSESSMENT ASSESSMENT Assessment BPPV ruled out stroke alcohol use Date of Service: Apr 19, 2025 Billing Provider: GABRIELLE BYRD MD Common Visit Codes: 38045-XHK/OBS DISCH DAY >30min GABRIELLE BYRD MD Apr 19, 2025 13:10
[2025-04-19 21:00] VITALS: BP 179/99; PULSE 74; RESP 19; TEMP 97.9; O2SAT 96
[2025-04-20 05:00] VITALS: BP 131/84; PULSE 75; RESP 17; TEMP 97.8; O2SAT 96
== END 2025-04-19 13:27 | disposition home or self-care (01) | DRG 149 ==
LOC: ER 09:04 → OVERFLOW 15:20 → TELE-EAST 21:44
PROVIDERS: ADMIT Student in an Organized Health Care Education/Training Program; ATTEND Student in an Organized Health Care Education/Training Program
DX: H81.13 Benign paroxysmal vertigo, bilateral (principal); F10.20 Alcohol dependence, uncomplicated; I95.1 Orthostatic hypotension; F17.210 Nicotine dependence, cigarettes, uncomplicated; M10.9 Gout, unspecified; Y90.9 Presence of alcohol in blood, level not specified; Z82.49 Family history of ischemic heart disease and other diseases of the circulatory system; Z82.3 Family history of stroke
CPT/HCPCS: 36415; 70450; 70551; 80048; 80053; 84484; 85025; 93886; 96360; 99291; 99292; G0378